=== PATIENT | male | born 1980 | race Caucasian/White ===

== ENCOUNTER 2018-11-05 21:24 | Emergency (ER) | payer MEDICAID, OTHER ==
[~2018-11-05] VITALS: Ht 165.1 cm; Wt 95.9 kg
[2018-11-05 21:42] VITALS: Ht 165.1 cm; Wt 95.9 kg
[2018-11-06] MEDS ORDERED: CEPH-443 PO (04:01)
[2018-11-06] MEDS ORDERED: TRAM50TA2 PO (04:01)
[2018-11-06] MEDS ORDERED: ACET-141 PO (04:01)
--- NOTE | 2018-11-06 04:03 | ERD ---
ER Documentation Chief Complaint Chief Complaint painful/dribbling urination x 30 minutes HPI History of Present Illness: 38-year-old male with past medical history of urethral stricture coming in today with complaint of painful urination and dribbling with urination that occurred for part 30 minutes prior to arrival. Patient went to [facility] at the beginning of September, and is awaiting a follow-up appointment post cystoscopy. Patient reports he has not had any symptoms worsening until today. Patient reports mild to moderate suprapubic pain. Denies flank pain, fever, chills At home pharmacological/nonpharmacological treatment for symptoms: Denies Denies social concerns; Denies recent foreign travel ROS All systems reviewed and are negative except as per history of present illness. Medications Home Meds Active Scripts Acetaminophen* (Acetaminophen*) 500 MG Extra Strength Tablet, 1000 MG PO Q6H PRN for PAIN AND OR ELEVATED TEMP, #30 TAB Prov:BJORN HUDSON NP 11/06/18 Tramadol HCl (Tramadol HCl) 50 Mg Tablet, 50 MG PO Q6, #20 TAB Prov:BJORN HUDSON NP 11/06/18 Discontinued Scripts Cephalexin* (Keflex*) 500 Mg Capsule, 500 MG PO Q6 for urine infection for 7 Days, #28 CAP Prov:BJORN HUDSON NP 11/06/18 Allergies Allergies: Coded Allergies: No Known Drug Allergies (Verified Allergy, Unknown, 11/05/18) PMhx/Soc Medical and Surgical Hx: pt denies Medical Hx, pt denies Surgical Hx Hx Alcohol Use: No Hx Substance Use: No Hx Tobacco Use: No Smoking Status: Never smoker FmHx Family History: No coronary disease Physical Exam Vitals Vital Signs Date Temp Pulse Resp B/P (MAP) Pulse Ox O2 O2 Flow FiO2 Time Delivery Rate 11/06/18 98.7 87 18 123/80 98 Room Air 04:56 (94) 11/05/18 98.3 79 18 164/86 97 21:42 (112) Physical Exam Const: No acute distress Head: Atraumatic Eyes: Normal Conjunctiva ENT: Normal External Ears, Nose and Mouth. Neck: Full range of motion. No meningismus. Resp: Clear to auscultation bilaterally Cardio: Regular rate and rhythm, no murmurs Abd: Soft, non tender, positive mild bladder distention. Normal bowel sounds. Skin: No petechiae or rashes Back: No midline or flank tenderness Ext: No cyanosis, or edema Neur: Awake and alert Psych: Normal Mood and Affect Result Diagram: 11/05/18 0003 Results 24 hrs Laboratory Tests Test 11/05/18 00:03 11/06/18 04:26 Sodium Level 142 mmol/L Potassium Level 4.2 mmol/L Chloride Level 107 mmol/L Carbon Dioxide Level 25 mmol/L Anion Gap 10 Blood Urea Nitrogen 16 mg/dl Creatinine 0.60 mg/dl Est Glomerular Filtrat Rate mL/min > 60 mL/min Glucose Level 105 mg/dl Calcium Level 9.7 mg/dl Urine Color YELLOW Urine Clarity CLEAR Urine pH 5.0 Bedside Urine pH (LAB) 6.0 Urine Specific [place] 1.020 Bedside Urine Protein (LAB) 1+ Bedside Urine Glucose (UA) Negative Urine Ketones NEGATIVE mg/dL Bedside Urine Ketones (LAB) Negative Bedside Urine Blood Negative Urine Nitrite NEGATIVE mg/dL Bedside Urine Nitrite (LAB) Negative Urine Bilirubin NEGATIVE mg/dL Urine Urobilinogen NEGATIVE mg/dL Urine Leukocyte Esterase NEGATIVE Yuval/ul Bedside Urine Leukocyte Esterase (L Negative Urine Hemoglobin NEGATIVE mg/dL Urine Glucose NEGATIVE mg/dL Urine Total Protein NEGATIVE mg/dl Current Medications Medications Dose Sig/Keli Start Time Status Last (Trade) Ordered Route PRN Stop Time Admin Dose Reason Admin 1 tab ONCE ONCE 11/06/18 DC 11/06/18 Acetaminophen PO 04:30 11/06/18 04:27 / 04:31 Hydrocodone Bitart ([place] (5/325)) Procedures/MDM ED course includes a thorough examination and history. Medications: Imaging: Bladder ultrasound Labs: BMP and urinalysis Low suspicion for life-threatening medical emergency. Low suspicion for acute abdominal emergency that requires hospitalization or immediate surgical intervention at this time. Otherwise healthy patient presenting with constellation of symptoms likely representing mild urinary retention post void secondary to urethral stricture as characterized by history, physical exam findings, imaging findings. Results showing: IMPRESSION: Bladder volume 327 ml. RPTAT: HJBB x-Rasheedpablo Cortez, Physician Patient reassessment: Patient updated on ultrasound results. Patient reports that he has the urge to urinate. Patient instructed to urinate and will do bladder scan to see if there is any post void residual urine left. Postvoid patient is holding about 100 mL of urine. Kidney functions are normal on CMP;; low suspicion that urinary retention is causing LIZ. Nurses with several attempts to insert a Peralta catheter to empty bladder to see urine volume out. Unable to use a 18 Indonesian due to urethral stricture. Unable to use pediatric Peralta catheter due to urethral stricture. Patient was reporting pain. Due to no signs of infection in urine and urinary retention only being approximately 100 mL of urine, will discharge patient with strict precautions to return for severe abdominal worsening pain, fever, flank pain. Case discussed with ED Dr. HERNANDEZ; AGREES WITH POC Patient reassessment: Patient hemodynamically stable. No respiratory distress, otherwise relatively well appearing and nontoxic. Disposition given. Patient educated on diagnoses, prescriptions, follow-up care, return precautions. Strict return precautions given for worsening condition; questions answered discharge. Disposition for discharge with followup in 2 days with PCP/clinic. Departure Diagnosis: Primary Impression: Urethral stricture Urethral stricture type: unspecified stricture type Urethral stricture sex- location: male urethra-unspecified Qualified Codes: N35.919 - Unspecified urethral stricture, male, unspecified site Additional Impression: Urine retention Condition: Stable Patient Instructions: Ureteral Stricture Surgery (Ureteroplasty), Urethral Stricture, Urinary Retention, Male [facility] Usted se camara hecho un examen mdico de control que le indica que no est en daxa condicin que requiera tratamiento urgente en el Departamento de Emergencia. Un estudio ms profundo y el tratamiento de doan condicin pueden esperar sin ningn riesgo hasta que usted sea atendida/o en el consultorio de doan mdico o daxa clnica. Es responsabilidad suya arreglar daxa petey para el seguimiento del karlos. MANEJO DE CONDICIONES NO URGENTES EN EL FUTURO 1) Si usted tiene un mdico de atencin primaria: Usted debera llamar a doan mdico de atencin primaria antes de venir al departamento de emergencia. Despus de las horas de consultorio, doan doctor o doan asociado/a est disponible por telfono. El mdico o enfermero de shira en el servicio telefnico puede asesorarle por sameera medio para atender el problema, o karlos contrario se puede programar daxa petey. 2) Si usted no tiene un mdico de atencin primaria: Llame al mdico o clnica de referencia que aparece abajo ruth las horas de consultorio para hacer daxa petey para que le vean. CLINICAS: [facility] [phone] [address] [facility] [phone] [address] [facility] [phone] [address] [facility]. [facility] [phone] [address] [facility] [facility]. [facility] [phone] [address] [facility]. [phone] [address] [facility]. [facility] () Usted se camara hecho un examen mdico de control que le indica que no est en daxa condicin que requiera tratamiento urgente en el Departamento de Emergencia. Un estudio ms profundo y el tratamiento de doan condicin pueden esperar sin ningn riesgo hasta que usted sea atendida/o en el consultorio de doan mdico o daxa clnica. Es responsabilidad suya arreglar daxa petey para el seguimiento del karlos. MANEJO DE CONDICIONES NO URGENTES EN EL FUTURO 1) Si usted tiene un mdico de atencin primaria: Usted debera llamar a doan mdico de atencin primaria antes de venir al departamento de emergencia. Despus de las horas de consultorio, doan doctor o doan asociado/a est disponible por telfono. El mdico o enfermero de shira en el servicio telefnico puede asesorarle por sameera medio para atender el problema, o karlos contrario se puede programar daxa petey. 2) Si usted no tiene un mdico de atencin primaria: Llame al mdico o condado institucions de referencia que aparece abajo ruth las horas de consultorio para hacer daxa petey para que le vean. SI USTED NO PUEDE PAGAR PARA KALANI UN MEDICO puede ir a: [facility] [address] [place] [address] [facility] [address] [place] [address] [facility] [address] [place] [address] [facility] [address] [place] [address] Additional Instructions: Thank you very much for allowing us to participate in your care. Your health and safety is our top priority at [facility]. It is important to read all discharge instructions and education provided in your discharge packet. Call your primary care doctor TOMORROW for an appointment during the next 2-4 days and bring all the information and medications prescribed. Have prescriptions filled and follow precisely the directions on the label. If the symptoms get worse and your provider is unavailable, return to the Emergency Department immediately. BJORN HUDSON NP November 06, 2018 04:03
[2018-11-06] MEDS ORDERED: HYDROCODONE/APAP (5/325) TAB PO ONE (04:30)
[2018-11-06 04:56] VITALS: BP 123/80; PULSE 87; RESP 18
== END 2018-11-06 04:57 | disposition home or self-care (01) ==
LOC: FTE 21:24
DX: N35.919 Unspecified urethral stricture, male, unspecified site (principal)
CPT/HCPCS: 76705; 80048; 81003; 87086; Z7502; Z7610